=== PATIENT | female | born 1970 | race Caucasian/White ===

== ENCOUNTER 2021-06-01 08:54 | Emergency (ER) | payer MEDICARE ==
[2021-06-01 09:58] LABS: Bilirubin Neg (Negative); Blood, Urine Negative (Negative); Clarity Clear (Clear); Glucose, Urine (Dipstick) Normal (Negative); Ketone, Urine Negative (Negative); Leukocyte 25 (Negative); Nitrite Negative (Negative); Protein, Urine (Dipstick) Negative (Neg-Trace); Urobilinogen Normal mg/dL (Less than 2)
[2021-06-01 10:05] LABS: Bacteria/HPF Rare-Few HPF (None Seen); RBC/HPF 0-3 HPF (0-3); WBC/HPF 0-3 HPF (0-3)
[2021-06-01] MEDS ORDERED: Lidocaine 1% (PF) 30 ML VIAL ONE (10:10)
[2021-06-01] MEDS ORDERED: cefTRIAXone\\ROCEPHIN 500 MG VIAL ONE (10:10)
[2021-06-04 03:44] LABS: Chlamydia by PCR Not Detected (NotDetected); GC by PCR Not Detected (NotDetected)
== END 2021-06-01 10:30 | disposition home or self-care (01) ==
LOC: CSHERS 08:54
DX: N89.8 Other specified noninflammatory disorders of vagina (principal); I50.9 Heart failure, unspecified
CPT/HCPCS: 81003; 81015; 87480; 87491; 87510; 87591; 87660; 96372; 99283; J0696; J2001

== ENCOUNTER 2021-06-18 12:04 | Emergency (ER) | payer MEDICARE | END 2021-06-18 13:52 | disposition home or self-care (01) | LOC: CSHERS 12:04 | DX: M79.662 Pain in left lower leg (principal); I50.9 Heart failure, unspecified ==

== ENCOUNTER 2021-08-08 11:36 | Emergency (ER) | payer OTHER ==
[2021-08-08] MEDS ORDERED: Ibuprofen 200 MG TAB ONE (12:52)
== END 2021-08-08 14:20 | disposition home or self-care (01) ==
LOC: CSHERS 11:36
DX: S06.0X0A Concussion without loss of consciousness, initial encounter (principal); M62.830 Muscle spasm of back; I50.9 Heart failure, unspecified; W01.10XA Fall on same level from slipping, tripping and stumbling with subsequent striking against unspecified object, initial encounter
CPT/HCPCS: 70450; 72125

== ENCOUNTER 2021-11-04 17:15 | Emergency (ER) | payer MEDICARE ==
[2021-11-04 17:45] LABS: #Eosinphils 0.1 10x3/uL (0.0-0.5); #Monocytes 0.5 10x3/uL (0.0-1.1); #Neutrophils 4.5 10x3/uL (1.5-8.4); %Basophils 0.6 % (0.0-2.0); %Eosinophils 1.7 % (0.0-6.0); %Lymphocytes 25.1 % (18.0-47.0); %Monocytes 7.5 % (0.0-10.0); %Neutrophils 64.5 % (40.0-75.0); Hemoglobin 12.7 g/dL (12.0-15.5); Mean Corpuscular HGB CONC 36.1 g/dL (32.0-36.0); Mean Corpuscular Hemoglobin 30.8 pg (27.0-33.0); Mean Corpuscular Volume 85.2 fl (81.6-98.3); Mean Platelet Volume 9.1 fl (7.4-10.4); Platelet Count 260 10x3/uL (150-450); RBC Distribution Width 12.6 % (11.5-14.5); Red Blood Cell (RBC) Count 4.13 10x6/uL (3.90-5.03)
[2021-11-04 18:02] LABS: ALT (SGPT) 15 U/L (8-55); AST (SGOT) 16 U/L (5-34); Albumin 4.2 g/dL (3.5-5.0); Alkaline Phosphatase 112 U/L (40-110); Anion Gap 15 mmol/L (10-20); BUN (Urea Nitrogen) 8 mg/dL (9.8-20.1); Bilirubin, Total 0.3 mg/dL (0.2-1.2); CK (CPK) 42 U/L (29-168); Calc. Creatinine Clearance 0 mL/min (70-130); Calcium 9.3 mg/dL (7.8-10.44); Carbon Dioxide 19 mmol/L (22-29); Chloride 110 mmol/L (98-107); Glucose 114 mg/dL (70-105); Lipase 61 U/L (8-78); Potassium 3.8 mmol/L (3.5-5.1); Protein, Total 7.2 g/dL (6.0-8.3); Sodium 140 mmol/L (136-145)
[2021-11-04] MEDS ORDERED: Acetaminophen 500 MG TAB ONE (18:11)
[2021-11-04] MEDS ORDERED: Ketorolac Tromethamine 30 MG/ML VIAL ONE (18:31)
[2021-11-04 19:30] LABS: Bilirubin Neg (Negative); Blood, Urine Negative (Negative); Clarity Clear (Clear); Glucose, Urine (Dipstick) Normal (Negative); Ketone, Urine Negative (Negative); Leukocyte 100 (Negative); Nitrite Negative (Negative); Protein, Urine (Dipstick) Negative (Neg-Trace)
[2021-11-04 19:51] LABS: Bacteria/HPF Rare-Few HPF (None Seen); Mucous/LPF Rare LPF (<2+); RBC/HPF None Seen HPF (0-3); Squamous Epithelial 0-3 HPF (0-3); WBC/HPF 0-3 HPF (0-3)
== END 2021-11-04 20:39 | disposition home or self-care (01) ==
LOC: CSHERS 17:15
DX: R07.9 Chest pain, unspecified (principal); N39.0 Urinary tract infection, site not specified; I50.9 Heart failure, unspecified
CPT/HCPCS: 36415; 71045; 80053; 81003; 81015; 82550; 83605; 83690; 84484; 85025; 93005; 96372; J1885

== ENCOUNTER 2021-11-09 20:48 | Emergency (ER) | payer MEDICARE, OTHER ==
[2021-11-09 21:53] LABS: #Eosinphils 0.1 10x3/uL (0.0-0.5); #Monocytes 0.5 10x3/uL (0.0-1.1); #Neutrophils 3.3 10x3/uL (1.5-8.4); %Basophils 0.7 % (0.0-2.0); %Lymphocytes 32.8 % (18.0-47.0); %Monocytes 8.8 % (0.0-10.0); %Neutrophils 55.4 % (40.0-75.0); Hemoglobin 12.1 g/dL (12.0-15.5); Mean Corpuscular HGB CONC 35.1 g/dL (32.0-36.0); Mean Corpuscular Hemoglobin 30.6 pg (27.0-33.0); Mean Corpuscular Volume 87.1 fl (81.6-98.3); Mean Platelet Volume 9.1 fl (7.4-10.4); Platelet Count 234 10x3/uL (150-450); RBC Distribution Width 12.2 % (11.5-14.5); Red Blood Cell (RBC) Count 3.96 10x6/uL (3.90-5.03); White Blood Cell (WBC) Count 5.9 10x3/uL (3.5-10.5)
[2021-11-09 22:04] LABS: ALT (SGPT) 8 U/L (8-55); AST (SGOT) 13 U/L (5-34); Albumin 4.2 g/dL (3.5-5.0); Alkaline Phosphatase 94 U/L (40-110); Anion Gap 14 mmol/L (10-20); BUN (Urea Nitrogen) 15 mg/dL (9.8-20.1); Bilirubin, Total 0.4 mg/dL (0.2-1.2); Calc. Creatinine Clearance 0 mL/min (70-130); Carbon Dioxide 22 mmol/L (22-29); Chloride 106 mmol/L (98-107); Glucose 110 mg/dL (70-105); Protein, Total 7.2 g/dL (6.0-8.3); Sodium 138 mmol/L (136-145)
== END 2021-11-09 22:53 | disposition home or self-care (01) ==
LOC: CSHERS 20:48
DX: Z45.018 Encounter for adjustment and management of other part of cardiac pacemaker (principal); I50.9 Heart failure, unspecified; Z79.899 Other long term (current) drug therapy
CPT/HCPCS: 36415; 71045; 80053; 84484; 85025; 93005